=== PATIENT | male | born 1960 | race Caucasian/White ===

== ENCOUNTER 2020-07-16 14:58 | Emergency (ER) | payer BC, SELFPAY ==
[2020-07-16] MEDS ORDERED: Morphine 4 MG/ML VIAL ONE ×3 (15:14→16:17)
[2020-07-16] MEDS ORDERED: Ondansetron PF 4 MG/2 ML Vial ONE (15:14)
--- NOTE | 2020-07-16 15:40 | RAD ---
XR Ankle Rt 3 View STANDARD INDICATION: Fall from roof COMPARISON: None. FINDINGS: Bones: There is a heavily comminuted, impacted calcaneal fracture with extensive comminution involvin g the middle and posterior calcaneal facets. There is comminuted fracture blowout of the lateral wall of the calcaneus. Talar body appears within normal limits. The distal tibia and fibula appear wi thin normal limits. Ankle mortise: Symmetric. Talar Dome: Intact. Subtalar joint: There is prominent incongruity of the middle and posterior subtalar joint due to the comminuted depressed calcaneal fractures. Visualized hindfoot: There is prominent soft tissue swelling involving the posterior hindfoot and ank le. Periarticular soft tissues: Prominent soft tissue swelling IMPRESSION: 1. Heavily comminuted, impacted calcaneal fracture with extensive articular surface gap and depressio n involving the posterior middle subtalar joints. Recommend consideration for CT of the left hindfoot for further evaluation.
--- NOTE | 2020-07-16 16:13 | CT ---
EXAM: CT Lower Ext Rt WO Con DATE: 07/16/2020 3:41 PM INDICATION: Fall from roof with right calcaneal fracture COMPARISON: Right ankle radiographs dated July 16, 2020 FINDING: As seen on the comparison radiograph is a heavily comminuted calcaneal fracture. There is s light depression and articular surface gap involving multiple comminuted fractures extending into the posterior calcaneal facet. The largest articular gap is seen along the posterior aspect of the ce ntral calcaneal facet measuring 1 cm. There is approximately 2.5 mm of central articular surface depression involving multiple comminuted articular surface fragments. There is extensive comminution that extends into the base of the sustentaculum perico with an obliquely oriented fracture nondisplaced component extending into the articular surface of the middle subtalar joint. There is he madyson comminution involving the lateral wall of the calcaneus that extends into the base of the anterior calcaneal process. There is fracture extension into the calcaneocuboid joint without definit e step off or displacement. The cuboid is intact. The cuneiforms and navicular intact. Visualized metatarsals are intact. 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 The talus is intact. Small bone i sland is seen within the talar head. The distal tibia and fibula appear intact. IMPRESSION:Heavily comminuted calcaneal fracture
[2020-07-16] MEDS ORDERED: Ketorolac Tromethamine 30 MG/ML VIAL ONE (16:17)
== END 2020-07-16 17:24 | disposition home or self-care (01) ==
LOC: ERS 14:58
DX: S92.001A Unspecified fracture of right calcaneus, initial encounter for closed fracture (principal); W11.XXXA Fall on and from ladder, initial encounter
CPT/HCPCS: 96374; 96375; 96376; J1885; J2270; J2405

== ENCOUNTER 2020-07-30 09:58 | Outpatient (CLI) | payer OTHER ==
[2020-07-31 13:03] LABS: SARS-CoV-2 MS2 Positive; SARS-CoV-2 N Gene Negative; SARS-CoV-2 S Gene Negative; SARS-CoV-2 by NAA Not Detected (NotDetected); SARS-CoV-2 orf1ab Negative
== END 2020-07-30 09:59 | disposition home or self-care (01) ==
LOC: LABBT 09:58
PROVIDERS: ATTEND Orthopaedic Surgery
DX: Z20.828 Contact with and (suspected) exposure to other viral communicable diseases (principal)
CPT/HCPCS: 87635; U0003